=== PATIENT | female | born 1990 | race Caucasian/White ===

== ENCOUNTER 2020-02-11 09:28 | Emergency (ER) | payer OTHER ==
[~2020-02-11] VITALS: Ht 162.6 cm; Wt 76.2 kg
== END 2020-02-11 13:30 | disposition home or self-care (01) ==
LOC: ER 09:28
DX: K08.89 Other specified disorders of teeth and supporting structures (principal)

== ENCOUNTER 2020-10-07 11:57 | Emergency (ER) | payer OTHER ==
[~2020-10-07] VITALS: Ht 162.6 cm; Wt 79.4 kg
== END 2020-10-07 15:54 | disposition home or self-care (01) ==
LOC: ER 11:57
DX: L02.211 Cutaneous abscess of abdominal wall (principal); K65.1 Peritoneal abscess

== ENCOUNTER 2021-04-20 20:38 | Emergency (ER) | payer OTHER ==
[~2021-04-20] VITALS: Ht 162.6 cm; Wt 76.2 kg
[2021-04-21] MEDS ORDERED: HEMATRON AF PO (00:56)
== END 2021-04-21 01:14 ==
LOC: ER 20:38
DX: R00.2 Palpitations (principal); D64.9 Anemia, unspecified; E30.9 Disorder of puberty, unspecified

== ENCOUNTER → 2021-06-13 | Outpatient (CLI) | payer OTHER ==
[~2021-06-13] MED LIST: HEMATRON AF PO
== END | disposition home or self-care (01) ==
LOC: MAMO-SONO 10:00 → SONOGRAMA 10:18
PROVIDERS: ATTEND Internal Medicine
DX: E04.2 Nontoxic multinodular goiter (principal)

== ENCOUNTER 2024-07-25 14:16 | Emergency (ER) | payer OTHER ==
[~2024-07-25] VITALS: Ht 162.6 cm; Wt 90.7 kg
[2024-07-25] MEDS ORDERED: SYNTHROID75 MCG PO (14:59)
[2024-07-25] MEDS ORDERED: BUPROPION XL150 MG PO (15:01)
[2024-07-25] MEDS ORDERED: IBUPROFEN400 MG PO (15:01)
[2024-07-25] MEDS ORDERED: DIVALPROEX SOD500 MG PO (15:01)
[2024-07-25] MEDS ORDERED: FENOFIBRATE48 MG PO (15:01)
[2024-07-25] MEDS ORDERED: AZITHROMYCIN500 MG PO (15:01)
[2024-07-25] MEDS ORDERED: KETOROLAC TROMETHAMINE 30 MG VIAL IM STA (17:16)
[2024-07-25] MEDS ORDERED: DEXAMETHASONE SODIUM PHOSPHATE 4 MG/ML VIAL IM STA (17:17)
[2024-07-25] MEDS ORDERED: ORPHENADRINE CITRATE 30 MG/ML AMPUL IM STA (17:17)
== END 2024-07-25 17:49 | disposition home or self-care (01) ==
LOC: ER 14:18
DX: M79.2 Neuralgia and neuritis, unspecified (principal); Z88.8 Allergy status to other drugs, medicaments and biological substances

== ENCOUNTER 2024-07-26 01:13 | Emergency (ER) | payer OTHER ==
[~2024-07-26] VITALS: Ht 162.6 cm; Wt 81.6 kg
[~2024-07-26 01:13] MED LIST changes: +AZITHROMYCIN500 MG PO; +BUPROPION XL150 MG PO; +DIVALPROEX SOD500 MG PO; +FENOFIBRATE48 MG PO; +IBUPROFEN400 MG PO; +SYNTHROID75 MCG PO
[2024-07-26 02:59] LABS: HEMATOCRIT 43.6 % (36.0-45.00); MEAN CELL VOLUME 89.9 fL (80.00-100.00); MEAN CORPUSCULAR HEMOGLOBIN 30.9 pg (27.00-32.0); MEAN CORPUSCULAR HGB CONC 34.4 g/dl (32.0-36.0); PLATELET COUNT 316 K/uL (150-450); RED BLOOD COUNT 4.86 M/uL (4.00-6.00); RED CELL DISTRIBUTION WIDTH 13.4 % (11.5-14.5)
[2024-07-26 03:34] LABS: ANION GAP 12 (10.0-20.0); BLOOD UREA NITROGEN 16 mg/dL (7-18); BUN CREA RATIO 20 (7.0-25.0); CALCIUM 9.7 mg/dL (8.5-10.1); CARBON DIOXIDE 24 mEq/L (21-32); CHLORIDE 109 mmol/L (98-107); CREATININE SERUM 0.82 mg/dL (0.55-1.02); POTASSIUM 3.85 mEq/L (3.5-5.1); SODIUM 141 mmol/L (136-145)
[2024-07-26 03:35] LABS: HCG QUANTITATIVE < 1 mUI/mL (1-3); OSMOLALITY SERUM 288 MOSM/KG (275-295)
[2024-07-26 03:36] LABS: GLUCOSE FASTING 206 mg/dL (65-100)
[2024-07-26] MEDS ORDERED: METHYLPREDNISOLONE SOD SUCC 125 MG VIAL IV STA (04:27)
== END 2024-07-26 05:31 | disposition home or self-care (01) ==
LOC: ER 01:15
PROVIDERS: General Practice
DX: G51.0 Bell's palsy (principal); Z88.8 Allergy status to other drugs, medicaments and biological substances
CPT/HCPCS: 36415; 70450; 93005; 96365; 99284; J3490

== ENCOUNTER 2025-06-07 16:07 | Emergency (ER) | payer OTHER ==
[~2025-06-07] VITALS: Ht 162.6 cm; Wt 98.9 kg
[2025-06-07] MEDS ORDERED: CLINDAMYCIN PHOSPHATE 150 MG/ML (600mg) IM STA (18:04)
== END 2025-06-07 18:48 | disposition home or self-care (01) ==
LOC: ER 16:07
DX: L02.426 Furuncle of left lower limb (principal); Z88.8 Allergy status to other drugs, medicaments and biological substances